=== PATIENT | female | born 1945 | race Caucasian/White ===

== ENCOUNTER 2018-03-23 19:31 | Inpatient (IN) ==
[2018-03-23] MEDS ORDERED: Piperacil/Tazo 3.375 GM Premix 3.375 GM/50 ML PIGGYBACK IV.SIG ONE (20:04)
[2018-03-23] MEDS ORDERED: Morphine Inj 4 MG/ML Vial IV.PUSH ONE ×2 (20:04→21:54)
[2018-03-23] MEDS ORDERED: Vancomycin Inj 1,000 MG in Sodium Chlor 0.9% Inj 250 ML IV.SIG ONE (20:04)
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
[2018-03-23 20:26] LABS: Baso % (Auto) 0.6 % (0.0-2.0); Eos # (Auto) 0.2 th/mm3 (0.0-0.4); Eos % (Auto) 2.8 % (0.0-4.0); Hematocrit 35.7 % (35.0-46.0); Hemoglobin 11.9 gm/dL (11.6-15.3); Lymph # (Auto) 2.1 th/mm3 (1.0-4.8); Lymph % (Auto) 24.7 % (9.0-44.0); Mean Corpuscular HGB Conc 33.5 % (32.0-36.0); Mean Corpuscular Hemoglobin 30.5 pg (27.0-34.0); Mean Corpuscular Volume 91.1 fL (80.0-100.0); Mean Platelet Volume 7.5 fL (7.0-11.0); Mono # (Auto) 1.1 th/mm3 (0.0-0.9); Mono % (Auto) 12.6 % (0.0-8.0); Neut % (Auto) 59.3 % (16.0-70.0); Platelet Count 306 th/mm3 (150-450); Red Blood Count 3.91 mil/mm3 (4.00-5.30); White Blood Count 8.4 th/mm3 (4.0-11.0)
--- NOTE | 2018-03-23 20:36 | XR ---
EXAM DATE: 03/23/2018 8:30 PM EST AGE/SEX: 72 years / Female INDICATIONS: Left distal tibia infection and pain. CLINICAL DATA: This is the patient's initial encounter. Patient reports that signs and symptoms have been present for 2 months and indicates a pain score of 10/10. MEDICAL/SURGICAL HISTORY: None. None. COMPARISON: No prior exams available for comparison. FINDINGS: Bony structures are intact and in normal alignment. Osseous density is normal. Mild soft tissue swell ing overlying the distal anterior calf. No radiopaque foreign bodies seen. CONCLUSION: 1. Soft tissue swelling overlying the distal anterior tibia without underlying bony abnormality or o paque foreign bodies. Electronically signed by: Gavin Zeng MD Board Certified Radiologist 03/23/2018 8:34 PM [facility] T
[2018-03-23 20:38] LABS: INR 1.1 Ratio; Prothrombin Time 10.9 sec (9.8-11.6)
[2018-03-23 20:42] LABS: Albumin 3.3 g/dL (3.4-5.0); Anion Gap 7 meq/L (5-15); Aspartate Aminotransferase 24 U/L (15-37); Blood Urea Nitrogen 28 mg/dL (7-18); Calcium 9.8 mg/dL (8.5-10.1); Carbon Dioxide 29.3 meq/L (21.0-32.0); Chloride 107 meq/L (98-107); Glomerular Filtration Rate 55 mL/min (>89); Glucose,Random 116 mg/dL (74-106); Magnesium 2.3 mg/dL (1.5-2.5); Potassium 4.6 meq/L (3.5-5.1); Sodium 143 meq/L (136-145)
[2018-03-23 20:43] LABS: Alanine Aminotransferase 18 U/L (10-53)
[2018-03-23 20:45] LABS: Alkaline Phosphatase 63 U/L (45-117); Total Protein 8.7 g/dL (6.4-8.2)
[2018-03-23] MEDS ORDERED: Vancomycin Consult Pharmacy OTHER PRN (23:22)
[2018-03-23] MEDS ORDERED: Bisacodyl 10 MG Supp RECTAL PRN (23:23)
[2018-03-23] MEDS ORDERED: Acetaminophen 325 MG Tablet PO PRN (23:23)
[2018-03-23] MEDS: Sod Chloride 0.9% Inj 1,000 ML IV.CONT SCH (23:32)
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
[2018-03-24] MEDS ORDERED: Morphine Inj 4 MG/ML Vial IV.PUSH ONE (01:40)
[2018-03-24] MEDS: Piperacil/Tazo 4.5 GM Premix 4.5 GM/100 ML BAG IV.SIG SCH ×4 (01:57→21:33)
[2018-03-24 04:55] LABS: Baso % (Auto) 0.3 % (0.0-2.0); Eos # (Auto) 0.3 th/mm3 (0.0-0.4); Eos % (Auto) 3.3 % (0.0-4.0); Hematocrit 32.4 % (35.0-46.0); Lymph # (Auto) 1.6 th/mm3 (1.0-4.8); Lymph % (Auto) 20.2 % (9.0-44.0); Mean Corpuscular HGB Conc 33.8 % (32.0-36.0); Mean Corpuscular Hemoglobin 30.4 pg (27.0-34.0); Mean Platelet Volume 7.3 fL (7.0-11.0); Mono # (Auto) 1.1 th/mm3 (0.0-0.9); Mono % (Auto) 13.9 % (0.0-8.0); Neut # (Auto) 4.9 th/mm3 (1.8-7.7); Neut % (Auto) 62.3 % (16.0-70.0); Platelet Count 268 th/mm3 (150-450); Red Cell Distribution Width 14.8 % (11.6-17.2); White Blood Count 7.9 th/mm3 (4.0-11.0)
[2018-03-24 05:27] LABS: Alanine Aminotransferase 12 U/L (10-53); Albumin 2.8 g/dL (3.4-5.0); Alkaline Phosphatase 50 U/L (45-117); Anion Gap 8 meq/L (5-15); Aspartate Aminotransferase 19 U/L (15-37); Blood Urea Nitrogen 18 mg/dL (7-18); Calcium 8.7 mg/dL (8.5-10.1); Chloride 109 meq/L (98-107); Glomerular Filtration Rate 67 mL/min (>89); Glucose,Random 109 mg/dL (74-106); Potassium 3.4 meq/L (3.5-5.1); Sodium 144 meq/L (136-145); Total Protein 7.4 g/dL (6.4-8.2)
--- NOTE | 2018-03-24 07:17 | ECG ---
Date Performed: 03/23/2018 Time Performed: 20:30:39 PTAGE: 72 years EKG: Sinus rhythm MINIMAL ST DEPRESSION BORDERLINE ECG NO PREVIOUS TRACING DOCTOR: Eloy Maradiaga Interpretating Date/Time 03/24/2018 07:15:27
[2018-03-24] MEDS: Vitamin B Complex/Vitamin C Tablet PO SCH (08:50)
[2018-03-24] MEDS: Divalproex 500 MG ER Tablet PO SCH ×2 (08:51→21:35)
[2018-03-24] MEDS: Lisinopril 20 MG Tablet PO SCH ×2 (08:51→21:36)
[2018-03-24] MEDS: hydroCHLOROthiazide 25 MG Tablet PO SCH ×2 (08:51→21:36)
[2018-03-24] MEDS: Sertraline 50 MG Tablet PO SCH (08:52)
[2018-03-24] MEDS: Lactobacillus Acidophilus/L. Spores Tablet PO SCH ×2 (08:52→21:36)
[2018-03-24] MEDS: Ascorbic Acid 500 MG Tablet PO SCH (08:56)
[2018-03-24] MEDS ORDERED: Non-Formulary Drug (Lisinopril-Hydrochlorothiazide [Lisinopril-Hydrochlorothiazide] 1 TAB) PO SCH (09:00)
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
[2018-03-24] MEDS: Collagenase Oint 30 GM Tube TOPICAL SCH (10:54)
--- NOTE | 2018-03-24 12:40 | P.CONVS ---
History of Present Illness Service: vascular surgery Consult date: 03/24/18 Primary Care Provider: UNKNOWN Chief Complaint: non healing left leg wound History of Present Illness: 72 year old female since with left lower extremity nonhealing wound. She has been treated for the past 2 weeks with antibiotics as an outpatient. She presents today to the ER with a chief complaint of worsening pain and purulent drainage from her wound. She denies any fever or chills. PMFSH - History History Provided By: Patient - Medical History Medical History: Medical History (Last Reviewed 03/24/18 @ 11:31 by Michael Bailey MD) HTN (hypertension) Hx of hysterectomy - Tobacco History Second Hand Smoke Exposure: Yes Tobacco Use In Past 30 Days: Yes Smoking Status: Current some day smoker Tobacco Type: Cigarettes - Alcohol History How Often Do You Have a Drink Containing Alcohol: 2 to 3 times a week - Substance Use History Substance History: No History of Abuse - Travel History Recent Travel in the [place] Within the Last 8 Weeks: No Recent Travel Out of the Country Within the Last 8 Weeks: No - Immunization History Tetanus Immunization: >5 Years Hx Influenza Vaccine This Season: No Medications and Allergies Active Medications: Active Medications Acetaminophen (Tylenol) 650 mg PO Q4H PRN PRN Reason: Temp > 100.4 Al Hydroxide/Mg Hydroxide (Milk Of Celio Keenan) 30 ml PO Q12H PRN PRN Reason: Mild Constipation Ascorbic Acid (Vitamin C) 500 mg PO DAILY [facility] Last Admin: 03/24/18 08:56 Dose: 500 mg Aspirin (Ecotrin) 81 mg PO DAILY [facility] Last Admin: 03/24/18 11:57 Dose: 81 mg Bisacodyl (Dulcolax Supp) 10 mg RECTAL DAILY PRN PRN Reason: SEVERE CONSITIPATION Collagenase (Santyl Oint) 1 applicatio TOPICAL DAILY [facility] Last Admin: 03/24/18 10:54 Dose: 1 applicatio Divalproex Sodium (Depakote Er) 500 mg PO BID [facility] Last Admin: 03/24/18 08:51 Dose: 500 mg Heparin Sodium (Porcine) (Heparin Inj) 5,000 units SQ Q8HR [facility] Hydrochlorothiazide (Hydrodiuril) 12.5 mg PO BID [facility] Last Admin: 03/24/18 08:51 Dose: 12.5 mg Piperacillin/Tazobactam/Dextrose (Zosyn 4.5 Gm Premix) 4.5 gm in 100 mls @ 200 mls/hr IV.SIG Q6H [facility] Last Infusion: 03/24/18 09:55 Dose: Infused Sodium Chloride (Ns Inj) 1,000 mls @ 50 mls/hr IV.CONT .Q20H [facility] Last Admin: 03/23/18 23:32 Dose: 50 mls/hr Vancomycin HCl 750 mg/ Sodium (Chloride) 257.5 mls @ 250 mls/hr IV.SIG Q24H [facility] Lactobacillus Acidophilus (Lactinex) 1 tab PO BID [facility] Last Admin: 03/24/18 08:52 Dose: 1 tab Lactulose (Lactulose Liq) 30 ml PO DAILY PRN PRN Reason: SEVERE CONSITIPATION Lisinopril (Prinivil) 20 mg PO BID [facility] Last Admin: 03/24/18 08:51 Dose: 20 mg Miscellaneous Information ([facility] Ordered Lab Info) 0 each OTHER ONCE ONE Stop: 03/27/18 20:46 Ondansetron HCl (Zofran Inj) 4 mg IV.PUSH Q6H PRN PRN Reason: NAUSEA OR VOMITING Oxycodone/Acetaminophen (Percocet 5/325 Mg) 1 tab PO Q6H PRN PRN Reason: BREAKTHROUGH PAIN Last Admin: 03/24/18 10:07 Dose: 1 tab Pharmacy Profile Note (Vancomycin Consult Pharmacy) 1 each OTHER UNSCH PRN PRN Reason: Pharmacy to dose Sennosides (Senokot) 17.2 mg PO Q12H PRN PRN Reason: Moderate Constipation Sertraline HCl (Zoloft) 50 mg PO DAILY [facility] Last Admin: 03/24/18 08:52 Dose: 50 mg Sodium Chloride (Ns Flush) 2 ml IV.FLUSH PRN PRN PRN Reason: FLUSH AFTER USING IV ACCESS Sodium Chloride (Ns Flush) 2 ml IV.FLUSH BID [facility] Last Admin: 03/24/18 08:53 Dose: 2 ml Terazosin HCl (Hytrin) 1 mg PO [facility] Vitamin B Complex/Vitamin C (Allbee C) 1 tab PO DAILY [facility] Last Admin: 03/24/18 08:50 Dose: 1 tab Allergies Allergy/AdvReac Type Severity Reaction Status Date / Time No Known Allergies Allergy Verified 03/23/18 19:39 Home Medications Medication Instructions Recorded Confirmed Type ascorbic acid (vitamin C) [Vitamin 500 mg PO DAILY 03/23/18 03/24/18 History C] tzcwbeg-[id number]-[id number] 1 tab PO DAILY 03/23/18 03/24/18 History divalproex 500 mg PO BID 03/23/18 03/24/18 History lisinopril-hydrochlorothiazide 1 tab PO BID 03/23/18 03/24/18 History sertraline 50 mg PO DAILY 03/23/18 03/24/18 History terazosin 1 mg PO HS 03/23/18 03/24/18 History vitamin B complex [B Complex 1] 1 tab PO DAILY 03/23/18 03/24/18 History Physical Exam Vital Signs / I&O: Vital Signs 03/23/18 19:36 03/23/18 19:49 03/23/18 20:53 Temperature 98.8 F Pulse Rate 80 76 Respiratory Rate 16 18 16 Blood Pressure 169/79 H 168/70 H Pulse Oximetry 99 100 03/23/18 22:11 03/24/18 03:32 03/24/18 04:00 Temperature 98.3 F 98.3 F Pulse Rate 79 86 Respiratory Rate 16 16 12 Blood Pressure 171/72 H 192/81 H Pulse Oximetry 100 98 03/24/18 04:23 03/24/18 07:32 03/24/18 09:00 Temperature 98 F Pulse Rate 79 Respiratory Rate 18 18 Blood Pressure 164/78 H 152/67 H Pulse Oximetry 98 03/24/18 11:08 Temperature 98 F Pulse Rate 77 Respiratory Rate 18 Blood Pressure 176/72 H Pulse Oximetry 95 Intake & Output 03/23/18 03/24/18 03/24/18 18:59 06:59 18:59 Intake Total 400 / 400 100 / 100 Balance 400 / 400 100 / 100 Weight 49.89 kg Intake: IV 400 / 400 100 / 100 Zosyn 3.375 GM Premix 3.375 gm 50 / 50 In 50 ml @ 100 mls/hr IV.SIG ONCE ONE Rx#:[id number] Zosyn 4.5 GM Premix 4.5 gm In 100 / 100 100 / 100 100 ml @ 200 mls/hr IV.SIG Q6H [facility] Rx#:[id number] Vancomycin Inj 1,000 MG In NS 250 / 250 Inj 250 ML @ 250 mls/hr IV.SIG ONCE ONE Rx#:[id number] Oral 0 / 0 Other: # Voids 2 Date of Last Bowel Movement 03/23/18 03/23/18 Weight On Admission 49.895 kg Neuro: Alert awake oriented HEENT: Normocephalic atraumatic Neck: Supple Heart: S1-S2 Lungs: Clear to auscultation bilateral Abdomen: Soft nontender nondistended Vascular: Palpable femoral pulses bilateral Monophasic pedal signals bilateral Left calf wound with good granulation tissue. There is surrounding erythema and mild purulent discharge. Laboratory Results - last 24 hr 03/23/18 03/23/18 03/23/18 20:10 20:10 20:10 WBC 8.4 RBC 3.91 L Hgb 11.9 Hct 35.7 MCV 91.1 MCH 30.5 MCHC 33.5 RDW 15.0 Plt Count 306 MPV 7.5 Neut % (Auto) 59.3 Lymph % (Auto) 24.7 Hill % (Auto) 12.6 H Eos % (Auto) 2.8 Baso % (Auto) 0.6 Neut # (Auto) 5.0 Lymph # (Auto) 2.1 Hill # (Auto) 1.1 H Eos # (Auto) 0.2 Baso # (Auto) 0.0 WBC Differential . Differential Comment Auto diff final PT 10.9 INR 1.1 APTT 32.0 H Sodium 143 Potassium 4.6 Chloride 107 Carbon Dioxide 29.3 Anion Gap 7 BUN 28 H Creatinine 0.98 Estimated GFR 55 L Random Glucose 116 H Lactic Acid Calcium 9.8 Magnesium 2.3 Total Bilirubin 0.2 AST 24 ALT 18 Alkaline Phosphatase 63 Total Protein 8.7 H Albumin 3.3 L 03/23/18 03/23/18 03/24/18 20:10 23:15 04:26 WBC 7.9 RBC 3.60 L Hgb 11.0 L Hct 32.4 L MCV 90.0 MCH 30.4 MCHC 33.8 RDW 14.8 Plt Count 268 MPV 7.3 Neut % (Auto) 62.3 Lymph % (Auto) 20.2 Hill % (Auto) 13.9 H Eos % (Auto) 3.3 Baso % (Auto) 0.3 Neut # (Auto) 4.9 Lymph # (Auto) 1.6 Hill # (Auto) 1.1 H Eos # (Auto) 0.3 Baso # (Auto) 0.0 WBC Differential . Differential Comment Auto diff final PT INR APTT Sodium Potassium Chloride Carbon Dioxide Anion Gap BUN Creatinine Estimated GFR Random Glucose Lactic Acid 2.3 H 0.9 Calcium Magnesium Total Bilirubin AST ALT Alkaline Phosphatase Total Protein Albumin 03/24/18 04:26 WBC RBC Hgb Hct MCV MCH MCHC RDW Plt Count MPV Neut % (Auto) Lymph % (Auto) Hill % (Auto) Eos % (Auto) Baso % (Auto) Neut # (Auto) Lymph # (Auto) Hill # (Auto) Eos # (Auto) Baso # (Auto) WBC Differential Differential Comment PT INR APTT Sodium 144 Potassium 3.4 L D Chloride 109 H Carbon Dioxide 27.0 Anion Gap 8 BUN 18 Creatinine 0.83 Estimated GFR 67 L Random Glucose 109 H Lactic Acid Calcium 8.7 D Magnesium Total Bilirubin 0.4 AST 19 ALT 12 Alkaline Phosphatase 50 Total Protein 7.4 D Albumin 2.8 L Microbiology 03/23/18 20:10 Aerobic Blood Culture - Preliminary Blood - Peripheral No growth in 1 day Anaerobic Blood Culture - Preliminary No growth in 1 day 03/23/18 20:05 Aerobic Blood Culture - Preliminary Blood - Peripheral No growth in 1 day Anaerobic Blood Culture - Preliminary No growth in 1 day 03/23/18 20:26 Gram Stain - Final Abscess - Leg Impressions Tibia/Fibula X-Ray 03/23/18 20:00 CONCLUSION: 1. Soft tissue swelling overlying the distal anterior tibia without underlying bony abnormality or opaque foreign bodies. Aorta w/Runoff CTA 03/23/18 20:04 CONCLUSION: 1. Plaque throughout the arterial system. 2. Moderate plaque at the proximal right internal and external iliac arteries. 3. Plaque narrowing the lumen by 50% at the right common femoral artery. 4. 2 focal areas of narrowing at the mid and distal left superficial femoral artery narrowing the lumen by 50%. Assessment and Plan - Assessment (1) Critical ischemia of lower extremity Code(s): I99.8 - Other disorder of circulatory system Status: Acute - Plan Critical limb ischemia with tissue loss 1. Outlying facility ABIs: 0.6 bilaterally 2. Plan left lower extremity angiogram today 3. Wound care per podiatry team. Thank you for allowing me to participate in this patient care. If you have any questions do not hesitate to call my cell phone Eder Damico MD [facility] [phone]
[2018-03-24] MEDS: Heparin - SQ 10,000 UNITS/ML Vial SQ SCH ×2 (13:41→21:37)
--- NOTE | 2018-03-24 15:07 | MB ---
cc: Conner Garrido MD DATE: 03/24/2018 DATE OF CONSULTATION: 03/24/2018 REQUESTING PHYSICIAN: Dr. Oneil REASON FOR CONSULTATION: Left lower extremity cellulitis. HISTORY OF PRESENT ILLNESS: This is a 72-year-old white female who has had chronic skin wound on her left inner tibia for about 5 years. She had an injury to the leg 5 years ago. She noticed that 3 weeks ago the area became more reddened and has been looking progressively worse since that time. She was evaluated by Podiatry outpatient. She was put on antibiotic in the form of clindamycin and ciprofloxacin on 03/16/2018. She tells me that she began to have diarrhea the day after she started taking the antibiotics. She was reported to have peripheral vascular disease noted with ultrasound and MRI showed no evidence of osteomyelitis or abscess. She was sent to the emergency department for evaluation and a culture of the wound was taken and blood culture was also taken. She continues to have bouts of diarrhea. The wound culture is pending. The patient is afebrile and white blood cell count is normal. This consultation is requested for infection evaluation and management. PAST MEDICAL HISTORY: Hypertension. PAST SURGICAL HISTORY: Hysterectomy. ALLERGIES: NO KNOWN DRUG ALLERGIES. MEDICATIONS: 1. Vancomycin. 2. Piperacillin-tazobactam. 3. Zoloft. 4. Percocet 5 p.r.n. 5. Depakote. 6. Ecotrin. 7. Vitamin C. SOCIAL HISTORY: The patient smokes a pack of cigarettes a day. Denies illicit drugs. Consumes alcohol 2-3 times a week. FAMILY HISTORY: Noncontributory. REVIEW OF SYSTEMS: All systems have been reviewed and negative except for pain in the left leg. PHYSICAL EXAMINATION: GENERAL: She is a frail, thin female, who is awake and alert and in no acute distress. VITAL SIGNS: Temperature 98 degrees, BP 176/72, respirations 18, heart rate 77. HEENT: Head atraumatic. Extraocular movements grossly intact. Pupils reactive to light. No icterus. No conjunctival erythema. Oropharynx, no thrush. No visible lesions. NECK: Supple without adenopathy. LUNGS: Decreased breath sounds throughout. HEART: Distant S1 and S2, without audible murmur. ABDOMEN: Bowel sounds present. Soft, no tenderness. RECTAL: Not performed. EXTREMITIES: The left mid to distal inner tibia has an ulcerated wound, which has exudate. The area of the ulcer is white and has mild surrounding erythema. The rest of the extremities have no clubbing, cyanosis or edema. SKIN: No diffuse rash. NEUROLOGIC: No gross focal finding. PSYCHIATRIC: Calm and cooperative. LABORATORY DATA: WBC 7.9, platelet count 268, hemoglobin 11.0 with 62% neutrophils. Creatinine 0.83. Estimated GFR 67. Sodium 144. IMPRESSION: 1. Left leg nonhealing infected wound. Probably difficulty healing the wound because of peripheral vascular disease. Wound culture is pending. 2. Diarrhea. The patient received p.o. antibiotics and likely may have Clostridium difficile. RECOMMENDATIONS: 1. Continue the piperacillin/tazobactam. 2. Continue vancomycin. 3. Send stool for Clostridium difficile. 4. Add p.o. Flagyl while awaiting stool C. difficile. 5. Monitor wound culture. 6. Monitor clinical response. Thank you for this consultation. The patient's progress will be followed and further recommendations will be given upon followup if necessary. MD JACKIE Desai/arelis , 02:34 PM , 02:44 PM PRATIBHA
[2018-03-24] MEDS: metroNIDAZOLE 500 MG Tablet PO SCH ×2 (15:30→22:50)
[2018-03-24] MEDS ORDERED: Heparin/NS PF Inj 1,000 ML ONE (15:44)
[2018-03-24] MEDS ORDERED: fentaNYL Citrate Inj 100 MCG/2 ML Ampul ONE (15:46)
[2018-03-24] MEDS ORDERED: Iohexol 350 MG/ML 100 ML Vial (for Cath Lab) IVCONTRAST ONE (16:00)
--- NOTE | 2018-03-24 17:06 | P.OP ---
Preoperative Diagnosis: Left lower extremity CLI with tissue loss Postoperative Diagnosis: Left lower extremity CLI with tissue loss Date of procedure: 03/24/18 Procedure: 1. Ultrasound-guided access of the right common femoral artery 2. AIF angiogram 3. Left lower extremity third order angiogram 4. Atherectomy of the left superficial femoral 5. Balloon angioplasty of the left superficial femoral artery 6. Perclose of the right common femoral artery 7. Radiological supervision interpretation 8. Conscious sedation Anesthesia: other (Local moderate sedation) Surgeon: Eder Damico MD Estimated blood loss (mL): 5 Operation and Findings: Findings 1. The infrarenal abdominal aorta, bilateral common iliac artery, bilateral external iliac artery, left common femoral artery, left profunda femoral artery with noted to be patent with no evidence of significant stenosis. 2. Multiple area of critical stenosis involving the left superficial femoral artery. This was treated using an atherectomy followed by balloon angioplasty via a 5 x 150 mm balloon. Completion angiogram shows no residual stenosis or flow-limiting dissection. 3. Three-vessel runoff to the left foot. Operation details The patient was taken to the operating room, laid supine on the OR table. After adequate sedation the patient was prepped and draped in the standard sterile fashion. Timeout was called with all members in the OR in agreement. 1 % lidocaine was injected in the right groin. Using ultrasound guidance, we accessed the right common femoral artery and a 5 Uzbek sheath was placed. The catheter was placed in the infrarenal abdominal aorta and an AIF angiogram was performed. A catheter was placed into the left popliteal artery and left lower extremity third order angiogram was performed. Patient was heparinized. The 6 Uzbek destination sheath was placed with the tip in the left common femoral artery. Atherectomy of the left superficial femoral artery was performed followed by balloon angioplasty. Completion angiogram was performed. At this point all wire catheter and sheath were removed hemostasis achieved by applying a Perclose device the right common femoral artery. Patient tolerated the procedure well and was taken to recovery unit in stable condition.
--- NOTE | 2018-03-24 18:00 | CATHPROC ---
[employer] HIS Report Study Information Study Number Admission Scheduled Start Study Start [id number] Mar 23 2018 11:12PM 03/24/2018 Mar 24 2018 3:44PM [place] Service Cath Endovascular Study Admit Source Facility Department Emergency department [facility] Physician and Clinical Staff Initial Eder Zaragoza Surgery Nurse Hansa Barajas,OLIVIA Surgery Nurse Rg Landry,RN Recorder Maksim Del Valle,RT(R) Scrub Shahzad Hobson,RT(R) Procedures Performed Procedure Location (Site) Vessel Name Angiogram (manual) Fem L. Com (L7) Femoral Art Angiogram (manual) PELVIS Angiogram (manual) SFA (left) Femoral Art Angiogram (manual) Tib, Ant. (left) Popliteal Angiogram (manual) Tib, Post (Left) Popliteal RIM FIRE PRIMING TOOL SETTER SFA (left) Femoral Art Wire insertion Fem Art (right) Femoral Art Equipment Time Retort Fireman Description Size Mfg Part Number Used/Scraped PERCLOSE, PRO GLIDE CLOSER 16:34 [employer] FR 6 [id number] *[id number] Used DEVICE [id number] 15:45 [employer] WIRE, SUPERCORE 190CM Used *[id number] 16:12 [employer] WIRE, SUPERCORE 300CM 300CM Used *[id number] 16:26 [employer] WIRE, SUPERCORE 300CM 300CM Used *[id number] 15:45 ANGIO-DYNAMICS OMNI FLUSH 65CM CATHETER FR 4 Used *[id number] DBP- CARDIOVASCULAR CATHETER, STEALTH SOLID 16:16 [id number] Used SYSTEMS INC. 2.0MM *[id number] CARDIOVASCULAR [id number] 16:13 WIRE, FIRM (VIPER) 335 Used SYSTEMS INC. *[id number] INTRODUCER SET, 15:45 [employer]. FR 5 [id number] *[id number] Used MICROPUNCTURE STIFF BALLOON, EVERCROSS 5 X 150 [id number] 16:23 [employer] 5 X 150 Used 135CM *[id number] CATHETER, FR5 TRAILBLAZER [id number] 16:12 [employer] 135CM Used .035 *[id number] 15:45 [employer] INDUSTRIES PACK, CCL CUSTOM * Used *[id number] PROBE COVER, STERILE [id number] 15:45 Improve Digital * Used ULTRASOUND W/ GEL *[id number] 15:45 NAMIC MANIFOLD, 4 PORT * Used *[id number] 15:45 NYCOMED OMNIPAQUE, 300 MG, 150ML 150ML [id number] Used 15:45 NYCOMED OMNIPAQUE, 300 MG, 50ML 50ML [id number] Used [id number] 15:45 TERUMO MEDICAL SHEATH, FR5 TERUMO (10CM) FR 5 Used *[id number] SHEATH, FR6 PINNACLE [id number] 16:11 TERUMO MEDICAL/ANATOLIY FR 6 Used DESTINATION 45CM *[id number] WIRE, ANGLED GLIDE .035 [id number] 15:45 TERUMO MEDICAL/ANATOLIY 260CM Used 260CM *[id number] Equipment Model, Serial, Lot Number and Expiration Data Description Model Number Serial Number Lot Number Expiration Date BALLOON, EVERCROSS 5 X 150 [id number] 02-24-2021 135CM CATHETER, FR5 TRAILBLAZER .035 [id number] 10-17-2020 CATHETER, STEALTH SOLID 2.0MM [id number] 11-09-2019 PERCLOSE, PRO GLIDE CLOSER [id number] 12-10-2019 DEVICE WIRE, FIRM (VIPER) 335 [id number] 01-09-2020 History: Allergies Allergy Reaction No Known Allergies History: Risk Factors Family History of Hypertension Dyslipidemia Previous PR Previous Heart Failure Premature CAD Yes No No No No Prior Valve Prior PCI Prior CABG Surgery No No No Cerebrovascular Peripheral Artery Chronic Lung On Dialysis Diabetes Disease Disease Disease No Yes Yes No No History: Stress Tests Stress or Imaging Studies Performed No History: Other Current Smoker Method Packs a Day Years Used Pack Years Yes Cigarettes 1 65 65 Labs Hgb (g/dl) Hct (%) WBC (l/cumm) Platelets (thousands) 11.60-17.00 35.00-51.00 4.00-11.00 150.00-450.00 11.0 32.4 7.9 268 Glucose (mg/dl) BUN (mg/dl) Creatinine (mg/dl) BUN:Creatinine (1:x) 74.00-106.00 7.00-18.00 0.50-1.30 10.00-20.00 109 18 0.8 22.5 Na (meq/l) K (meq/l) 136.00-145.00 3.50-5.10 144 3.4 INR (PTT:PT) 0.90-1.10 1.1 CPK-MB (ng/ML) 0.50-3.60 Not Drawn Medication Medication Total Dose (Bolus/Oral) Medication Total Dosage/Unit 1% XYLOCAINE 20 mL FENTANYL 100 mcg HEPARIN 3000 units NTG (IC) 600 mcg VERSED 2 mg Medications (Bolus/Oral) Medication Time Given Dosage/Unit Administered By Reason VERSED 03/24/2018 4:00:59 PM 2 mg Hansa Barajas 2 mg VERSED given in lab by Hansa Barajas RN in Right Antecubital via Peripheral IV. FENTANYL 03/24/2018 4:01:14 PM 50 mcg Hansa Barajas 50 mcg FENTANYL given in lab by Hansa Barajas RN in Right Antecubital via Peripheral IV. 1% XYLOCAINE 03/24/2018 4:01:46 PM 20 mL Eder Damico 20 mL 1% XYLOCAINE given in lab by Eder Damico in Right Groin via Subcutaneous. HEPARIN 03/24/2018 4:11:30 PM 3000 units Hansa Barajas 3000 units HEPARIN given in lab by Hansa Barajas RN in Right Antecubital via Peripheral IV. NTG (IC) 03/24/2018 4:20:14 PM 400 mcg Shahzad Hobson 400 mcg NTG (IC) given in lab by Shahzad Hobson RT(R) via Intra-arterial. NTG (IC) 03/24/2018 4:22:44 PM 200 mcg Shahzad Hobson 200 mcg NTG (IC) given in lab by Shahzad Hobson RT(R) via Intra-arterial. FENTANYL 03/24/2018 4:32:53 PM 50 mcg Hansa Barajas 50 mcg FENTANYL given in lab by Hansa Barajas RN in Right Antecubital via Peripheral IV. Medication (Drip) Medication Time Given Dosage/Unit Concentration/Unit Diluent (ml) Solution IV Solutions 03/24/2018 3:47:18 PM 0 mL (IV) 500 NaCl .9 Patient arrived on IV Solutions in Right Arm via Peripheral IV. Pump/Drip Flow = 20 ml/hr using NaCl .9. Initial Case Assessment Cardiovascular HR Rhythm NIBP Chest Pain 75 sr 171/63 0 Edema Present Skin color Skin None Normal Warm Dry Circulatory - Right Pulses Dorsalis Pedis Femoral 1 1 Scale (0,1,2,3,4,d) Circulatory - Left Pulses Dorsalis Pedis Femoral 1 1 Scale (0,1,2,3,4,d) Neurological State Oriented to time-place- Alert Moves all extremities person Respiration - General Respiration Rate SpO2 (%) O2 (lpm) (B/min) 11 96 0 Chronological Log Time Study Chronological Log 15:40:56 Patient arrived via Bed. 15:40:58 Patient Name, D.O.B, / Armband Verified By R.N. 15:44:19 Consent signed by the physician and the patient and verified by the [facility] staff. 15:44:21 Pre-op and post- op instructions given; patient acknowledges understanding of instructions. 15:44:22 Verbal Stimulation=2 Physical Stimulation=2 Airway=2 Respiration=2 TOTAL=8. (0=absent, 1=li mited, 2=present) Vitals capture started with the following parameters, Patient=Adult, Interval=5 min, Initial Pr jpvkmh=663 mmHg, 15:45:10 Deflation Rate=5 mmHg, Cuff placed on Right Arm 15:46:03 HR=78 bpm, VODP=949/63 mmhg, SpO2=96.0 %, Resp=19 B/min, Pain=0, Justo=10, Schaefer=2 15:47:06 Presedation assessment performed by [facility] RN. 15:47:09 Patient has been NPO for More than 6Hrs. 15:47:10 Skin Breakdown-Left lower extremity wound. 15:47:17 Rafat Prominences Protected 15:47:17 A # 20 IV was noted in the Upper Arm (right). Grade = 0 15:47:18 Patient arrived on IV Solutions in Right Arm via Peripheral IV. Pump/Drip Flow = 20 ml/hr u sing NaCl .9. 15:47:22 History and physical on the chart or being dictated. Assessment: Initial Case, HR=75 BPM, Rhythm=sr, ZIBE=588/63 mmhg, Chest Pain=0, Edema=None, Col or=Normal, Skin = Warm, Dry Right Pulses: Teo Ped=1, Femoral=1 15:47:22 Left Pulses: Teo Ped=1, Femoral=1 Neurological: State=Alert, Ox3, GARCIA Respiration: Resp=11 B/min, SpO2=96 %, O2=0 lpm 15:50:37 Bilateral groins prepped with 2% chlorhexidine, and draped after a 3 minute waiting time. 15:50:52 HR=62 bpm, UIMU=207/71 mmhg, SpO2=98.0 %, Resp=12 B/min, Pain=0, Justo=10, Schaefer=2 15:55:55 HR=90 bpm, ITVS=212/67 mmhg, SpO2=97.0 %, Resp=14 B/min, Pain=0, Justo=10, Schaefer=2 15:57:29 Pressure channel 2 zeroed. 15:57:48 MD arrived. Time Out. Correct patient, correct procedure, correct physician, labs, allergies, and equipment verified with electrical laboratory technician 16:00:16 team present. Fire risk assesment completed (see hard stop sheet for coding). Time Out Conc urred by MD and individual staff in procedure. 16:00:50 HR=97 bpm, ZYYU=101/66 mmhg, SpO2=97.0 %, Resp=14 B/min, Pain=0, Justo=10, Schaefer=2 16:00:57 Case Start 16:00:59 2 mg VERSED given in lab by Hansa Barajas RN in Right Antecubital via Peripheral IV. 16:01:14 50 mcg FENTANYL given in lab by Hansa Barajas RN in Right Antecubital via Peripheral IV. 16:01:46 20 mL 1% XYLOCAINE given in lab by Eder Damico in Right Groin via Subcutaneous. 16:03:52 Access site was Right Femoral Artery. 16:03:59 A SHEATH, FR5 TERUMO (10CM) FR 5 was advanced into the Fem Art (right) using the Percutaneo us technique. A OMNI FLUSH 65CM CATHETER FR 4 was advanced over a wire. OMNIPAQUE, 300 MG, 150ML 150ML was us ed for 16:05:51 injections. 16:05:55 HR=84 bpm, YVAM=304/53 mmhg, SpO2=88.0 %, Resp=7 B/min, Pain=0, Justo=10, Schaefer=2 16:07:14 PELVIS angiogram, manually injected. 16:07:35 A WIRE, ANGLED GLIDE .035 260CM 260CM was inserted via Fem Art (right). 16:08:15 Reference ECG taken 16:08:51 Fem L. Com (L7) angiogram, manually injected. 16:09:02 SFA (left) angiogram, manually injected. 16:09:09 Tib, Ant. (left) angiogram, manually injected. 16:09:24 Tib, Post (Left) angiogram, manually injected. 16:10:46 HR=94 bpm, EIEN=024/57 mmhg, SpO2=88.0 %, Resp=7 B/min, Pain=0, Justo=10, Schaefer=2 16:11:22 A WIRE, SUPERCORE 300CM 300CM was inserted via Fem Art (right). 16:11:30 3000 units HEPARIN given in lab by Hansa Barajas, OLIVIA in Right Antecubital via Peripheral IV. A SHEATH, FR6 PINNACLE DESTINATION 45CM FR 6 was exchanged in the Fem Art (right). This was nec essary in 16:11:33 order to accomodate a larger catheter. 16:15:47 HR=70 bpm, XBOD=900/53 mmhg, SpO2=90.0 %, Resp=8 B/min, Pain=0, Justo=10, Schaefer=2 16:16:21 A WIRE, FIRM (VIPER) 335 was inserted via Fem Art (right). 16:16:25 An CATHETER, STEALTH SOLID 2.0MM catheter was inserted into the SFA (left). Athrectomy in progress. 16:16:47 16:20:14 400 mcg NTG (IC) given in lab by Shahzad Hobson, RT(R) via Intra-arterial. 16:21:09 Catheter was removed 16:21:31 HR=72 bpm, HERW=158/63 mmhg, SpO2=91.0 %, Resp=9 B/min, Pain=0, Justo=10, Schaefer=2 16:22:14 An CATHETER, STEALTH SOLID 2.0MM catheter was inserted into the SFA (left). 16:22:33 athrectomy in progress. 16:22:44 200 mcg NTG (IC) given in lab by Shahzad Hobson, RT(R) via Intra-arterial. 16:23:03 Catheter was removed 16:23:44 A BALLOON, EVERCROSS 5 X 150 135CM 5 X 150 was inserted over WIRE, FIRM (VIPER) 335 via the SFA (left). 16:25:53 HR=81 bpm, DXRE=269/63 mmhg, SpO2=90.0 %, Resp=11 B/min, Pain=0, Justo=10, Schaefer=2 16:26:17 In the SFA (left) a BALLOON, EVERCROSS 5 X 150 135CM 5 X 150 was inflated to 8 atms for 15 seconds. 16:27:01 SFA (left) angiogram, manually injected. 16:27:44 In the SFA (left) a BALLOON, EVERCROSS 5 X 150 135CM 5 X 150 was inflated to 8 atms for 15 seconds. 16:30:52 HR=76 bpm, VXQS=621/65 mmhg, SpO2=92.0 %, Resp=8 B/min, Pain=0, Justo=10, Schaefer=2 16:32:07 In the SFA (left) a BALLOON, EVERCROSS 5 X 150 135CM 5 X 150 was inflated to 8 atms for 45 seconds. 16:32:53 50 mcg FENTANYL given in lab by Hansa Barajas RN in Right Antecubital via Peripheral IV. 16:35:31 Balloon Removed 16:35:51 An injection in the Fem Art (right) was made through the SHEATH, FR6 PINNACLE DESTINATION 4 5CM FR 6. 16:35:53 HR=73 bpm, ERMP=489/71 mmhg, SpO2=92.0 %, Resp=11 B/min, Pain=0, Justo=10, Schaefer=2 16:38:36 PERCLOSE, PRO GLIDE CLOSER DEVICE FR 6 placement in the Fem Art (right) 16:40:50 HR=81 bpm, WQYR=706/84 mmhg, SpO2=89.0 %, Resp=8 B/min, Pain=0, Justo=10, Schaefer=2 16:41:20 Case End (Physician broke scrub) 16:42:27 Pressure applied to access site. 16:46:06 Vitals capture stopped. 16:46:40 Sterile dressing applied to site 16:47:00 Catheter(s) removed without difficulty 16:47:04 No case complications noted. 16:47:09 Bedside Report will be given. 16:47:10 Implantable Device card placed in patient's chart. 16:51:26 Patient moved to stretcher 17:00:37 Waiting for room to be cleaned 17:59:19 Room is clean and ready. End Study - Contrast Media Used In Study Contrast Total Opened (mL) Total Used (mL) Total Wasted (mL) Omnipaque 300 85 85 0 End Study - Maximum Contrast Load Max Contrast Load (mL) 311.4 End Study - Radiation Exposure Fluoro Time Fluoro Dose (mGy) Cine Dose (uGym2) (minutes) 4.9 28 521 End Study - Patient Disposition Complications Transferred To Interventional Outcome No Telemetry Bed successful
--- NOTE | 2018-03-24 19:04 | MB ---
cc: Isabella Ramirez DPM DATE: 03/24/2018 REASON FOR CONSULTATION: Left leg cellulitis vascular disease and PVD. HISTORY OF PRESENT ILLNESS: The patient is a 72-year-old female who has a wound for about 5 years to the left leg, worsening over the last 3 years, evaluated by Dr. Sierra, sent in for IV antibiotics after oral antibiotics of clindamycin and Cipro failed. PAST MEDICAL HISTORY: Hypertension. PAST SURGICAL HISTORY: Hysterectomy. MEDICATIONS: Per chart. SOCIAL HISTORY: The patient smokes a pack per day. Denies illicit drugs. Alcohol 2-3 times a week. FAMILY HISTORY: Noncontributory. REVIEW OF SYSTEMS: Negative except for left leg pain. PHYSICAL EXAMINATION: EXTREMITIES: Left medial distal tibia ulceration. Positive drainage, fibrotic. DP and PT nonpalpable. LABORATORY DATA: WBC 7.9, platelets 268, hemoglobin 11. IMPRESSION: 1. Left leg wound. 2. Peripheral vascular disease. PLAN: The patient underwent with angio with atherectomy on 03/24/[address] Childress. She will be kept in-house for IV antibiotics and monitor. Likely discharge home with antibiotics per ID. We will continue to follow the patient while in-house. Isabella Ramirez DPM SR/ll , 05:21 PM , 05:28 PM
[2018-03-24] MEDS: Vancomycin Inj 750 MG in Sodium Chlor 0.9% Inj 250 ML IV.SIG SCH (21:34)
[2018-03-24] MEDS: Sod Chloride 0.9% Inj 1,000 ML IV.CONT SCH (22:40)
[2018-03-25] MEDS: Piperacil/Tazo 4.5 GM Premix 4.5 GM/100 ML BAG IV.SIG SCH ×4 (01:36→21:14)
[2018-03-25] MEDS: metroNIDAZOLE 500 MG Tablet PO SCH (06:17)
[2018-03-25] MEDS: Heparin - SQ 10,000 UNITS/ML Vial SQ SCH ×3 (06:17→21:56)
[2018-03-25 08:15] LABS: Hematocrit 28.2 % (35.0-46.0); Hemoglobin 9.7 gm/dL (11.6-15.3); Mean Corpuscular HGB Conc 34.3 % (32.0-36.0); Mean Corpuscular Hemoglobin 30.9 pg (27.0-34.0); Mean Platelet Volume 8.2 fL (7.0-11.0); Platelet Count 230 th/mm3 (150-450); Red Blood Count 3.13 mil/mm3 (4.00-5.30); Red Cell Distribution Width 15.1 % (11.6-17.2); White Blood Count 7.2 th/mm3 (4.0-11.0)
[2018-03-25 08:26] LABS: INR 1.1 Ratio; Prothrombin Time 11.1 sec (9.8-11.6)
[2018-03-25 08:32] LABS: Anion Gap 7 meq/L (5-15); Blood Urea Nitrogen 8 mg/dL (7-18); Calcium 8.1 mg/dL (8.5-10.1); Carbon Dioxide 27.2 meq/L (21.0-32.0); Chloride 109 meq/L (98-107); Glomerular Filtration Rate Greater Than 89 mL/min (>89); Glucose,Random 82 mg/dL (74-106); Potassium 3.3 meq/L (3.5-5.1); Sodium 143 meq/L (136-145)
[2018-03-25 08:37] LABS: Chol/HDL Ratio 3.88 Ratio; HDL Cholesterol 31.4 mg/dL (40.0-60.0)
[2018-03-25] MEDS: Divalproex 500 MG ER Tablet PO SCH ×2 (09:21→21:21)
[2018-03-25] MEDS: Sertraline 50 MG Tablet PO SCH (09:22)
[2018-03-25] MEDS: Lisinopril 20 MG Tablet PO SCH ×2 (09:22→21:19)
[2018-03-25] MEDS: Vitamin B Complex/Vitamin C Tablet PO SCH (09:23)
[2018-03-25] MEDS: Lactobacillus Acidophilus/L. Spores Tablet PO SCH ×2 (09:23→21:18)
[2018-03-25] MEDS: Ascorbic Acid 500 MG Tablet PO SCH (09:23)
[2018-03-25] MEDS: hydroCHLOROthiazide 25 MG Tablet PO SCH ×2 (09:23→21:19)
[2018-03-25] MEDS: Collagenase Oint 30 GM Tube TOPICAL SCH (09:24)
--- NOTE | 2018-03-25 10:54 | P.PNVS ---
Subjective Post Op Day #: 1 Subjective/Hospital Course: Doing well, left lower extremity pain is well controlled Objective Vital Signs / I&O: Vital Signs 03/24/18 11:08 03/24/18 18:36 03/24/18 18:54 Temperature 98 F 99.2 F Pulse Rate 77 76 81 Respiratory Rate 18 20 20 Blood Pressure 176/72 H 173/64 H 155/75 H Pulse Oximetry 95 94 L 95 03/24/18 19:00 03/24/18 20:00 03/24/18 20:45 Temperature Pulse Rate 69 84 77 Respiratory Rate 20 20 Blood Pressure 155/75 H 153/67 H Pulse Oximetry 95 93 L 03/24/18 21:00 03/24/18 22:00 03/24/18 22:45 Temperature Pulse Rate 76 92 H 87 Respiratory Rate 20 Blood Pressure 158/58 H Pulse Oximetry 94 L 03/24/18 22:54 03/24/18 23:00 03/24/18 23:30 Temperature Pulse Rate 75 74 75 Respiratory Rate 20 20 Blood Pressure 135/57 L 130/52 L Pulse Oximetry 92 L 95 03/25/18 00:00 03/25/18 01:00 03/25/18 02:00 Temperature 100.4 F H Pulse Rate 70 80 74 Respiratory Rate 20 Blood Pressure 126/53 L Pulse Oximetry 93 L 03/25/18 03:00 03/25/18 04:00 03/25/18 06:00 Temperature 99.2 F Pulse Rate 72 69 66 Respiratory Rate 20 20 Blood Pressure 136/58 L 118/50 L Pulse Oximetry 94 L 92 L 03/25/18 07:00 03/25/18 08:00 03/25/18 09:00 Temperature 98.4 F Pulse Rate 65 76 72 Respiratory Rate 17 Blood Pressure 131/60 Pulse Oximetry 93 L 03/25/18 10:00 03/25/18 10:26 Temperature Pulse Rate 72 Respiratory Rate 17 Blood Pressure Pulse Oximetry Intake & Output 03/24/18 03/25/18 03/25/18 18:59 06:59 18:59 Intake Total 1600 / 1600 937.5 / 937.5 100 / 100 Output Total 300 / 300 Balance 1600 / 1600 637.5 / 637.5 100 / 100 Intake: IV 1200 / 1200 457.5 / 457.5 100 / 100 NS Inj 1,000 ML @ 50 mls/hr IV. 1000 / 1000 CONT .Q20H [facility] Rx#:[id number] Zosyn 4.5 GM Premix 4.5 gm In 200 / 200 200 / 200 100 / 100 100 ml @ 200 mls/hr IV.SIG Q6H [facility] Rx#:[id number] Vancomycin Inj 750 MG In NS Inj 257.5 / 257.5 250 ML @ 250 mls/hr IV.SIG Q24H [facility] Rx#:[id number] Oral 480 / 480 Anesthesia Amount 400 / 400 Output: Urine 300 / 300 Other: # Voids 3 Date of Last Bowel Movement 03/23/18 03/23/18 # Incontinent Bowel Movements 4 Exam: Right groin clean dry intact +2 palpable left DP pulse Laboratory Results - last 24 hr 03/24/18 03/25/18 03/25/18 14:41 06:26 06:26 WBC 7.2 RBC 3.13 L Hgb 9.7 L Hct 28.2 L MCV 90.0 MCH 30.9 MCHC 34.3 RDW 15.1 Plt Count 230 MPV 8.2 PT INR Sodium Potassium Chloride Carbon Dioxide Anion Gap BUN Creatinine Estimated GFR Random Glucose Calcium Magnesium 2.0 Triglycerides 103 Cholesterol 122 LDL Cholesterol, Calc 70 HDL Cholesterol 31.4 L Cholesterol/HDL Ratio 3.88 Stl C.difficile DNA Amp Negative St C. diff Tox Epid 027 Negative 03/25/18 03/25/18 03/25/18 06:26 06:26 06:26 WBC RBC Hgb Hct MCV MCH MCHC RDW Plt Count MPV PT 11.1 INR 1.1 Sodium 143 Potassium 3.3 L Chloride 109 H Carbon Dioxide 27.2 Anion Gap 7 BUN 8 Creatinine 0.64 Estimated GFR Greater than 89 Random Glucose 82 Calcium 8.1 L Magnesium Cancelled Triglycerides Cholesterol LDL Cholesterol, Calc HDL Cholesterol Cholesterol/HDL Ratio Stl C.difficile DNA Amp St C. diff Tox Epid 027 Microbiology 03/23/18 20:26 Gram Stain - Final Abscess - Leg Wound Culture - Preliminary 03/23/18 20:10 Aerobic Blood Culture - Preliminary Blood - Peripheral No growth in 1 day Anaerobic Blood Culture - Preliminary No growth in 1 day 03/23/18 20:05 Aerobic Blood Culture - Preliminary Blood - Peripheral No growth in 1 day Anaerobic Blood Culture - Preliminary No growth in 1 day Assessment and Plan - Assessment (1) Critical ischemia of lower extremity Code(s): I99.8 - Other disorder of circulatory system Status: Acute - Plan Critical limb ischemia with tissue loss Status post left lower extremity angiogram and balloon angioplasty of the left superficial femoral artery postop day #1 1. PT, OT 2. Local wound care per podiatry team 3. Stable for discharge from vascular surgery standpoint. 4. I will schedule follow-up appointment in 4 weeks with a repeat ABIs. My office will call patient with appointment [facility]der Damico [facility] [place] [phone]
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
[2018-03-25] MEDS ORDERED: Potassium Chlor 20 mEq Premix 20 MEQ/100 ML PIGGYBACK IV.SIG SCH (14:00)
[2018-03-25] MEDS: Vancomycin Inj 750 MG in Sodium Chlor 0.9% Inj 250 ML IV.SIG SCH (21:53)
[2018-03-26] MEDS: Piperacil/Tazo 4.5 GM Premix 4.5 GM/100 ML BAG IV.SIG SCH ×4 (04:10→19:58)
[2018-03-26] MEDS: Heparin - SQ 10,000 UNITS/ML Vial SQ SCH ×3 (05:49→22:57)
[2018-03-26 07:36] LABS: Baso % (Auto) 0.6 % (0.0-2.0); Eos # (Auto) 0.2 th/mm3 (0.0-0.4); Hematocrit 27.1 % (35.0-46.0); Hemoglobin 9.4 gm/dL (11.6-15.3); Lymph # (Auto) 0.8 th/mm3 (1.0-4.8); Lymph % (Auto) 11.2 % (9.0-44.0); Mean Corpuscular HGB Conc 34.8 % (32.0-36.0); Mean Corpuscular Hemoglobin 31.3 pg (27.0-34.0); Mean Platelet Volume 8.2 fL (7.0-11.0); Mono % (Auto) 13.5 % (0.0-8.0); Neut # (Auto) 5.2 th/mm3 (1.8-7.7); Neut % (Auto) 71.7 % (16.0-70.0); Platelet Count 216 th/mm3 (150-450); Red Blood Count 3.01 mil/mm3 (4.00-5.30); Red Cell Distribution Width 14.8 % (11.6-17.2); White Blood Count 7.3 th/mm3 (4.0-11.0)
[2018-03-26 07:59] LABS: Anion Gap 8 meq/L (5-15); Blood Urea Nitrogen 4 mg/dL (7-18); Calcium 7.7 mg/dL (8.5-10.1); Carbon Dioxide 25.8 meq/L (21.0-32.0); Chloride 107 meq/L (98-107); Glomerular Filtration Rate Greater Than 89 mL/min (>89); Glucose,Random 74 mg/dL (74-106); Magnesium 1.9 mg/dL (1.5-2.5); Potassium 3.6 meq/L (3.5-5.1); Sodium 141 meq/L (136-145)
[2018-03-26] MEDS: Lactobacillus Acidophilus/L. Spores Tablet PO SCH ×2 (10:29→20:05)
[2018-03-26] MEDS: Vitamin B Complex/Vitamin C Tablet PO SCH (10:29)
[2018-03-26] MEDS: Sertraline 50 MG Tablet PO SCH (10:29)
[2018-03-26] MEDS: Lisinopril 20 MG Tablet PO SCH ×2 (10:29→20:07)
[2018-03-26] MEDS: Divalproex 500 MG ER Tablet PO SCH ×2 (10:29→20:05)
[2018-03-26] MEDS: Collagenase Oint 30 GM Tube TOPICAL SCH (10:30)
[2018-03-26] MEDS: Ascorbic Acid 500 MG Tablet PO SCH (10:30)
[2018-03-26] MEDS: hydroCHLOROthiazide 25 MG Tablet PO SCH ×2 (10:30→20:06)
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
--- NOTE | 2018-03-26 15:51 | P.DCO ---
Diagnosis (1) Critical ischemia of lower extremity: Status: Acute Physical Therapy Order: Evaluate and treat Home Health Nursing Order: Medical education, Wound care and dressing changes and Nursing assessment with vital signs Case Management Consult Case Management Consult-Home Health: Yes I have seen patient Monika Cano on 03/26/18. My clinical findings support the need for the requested home health care services because: Limited mobility due to disease progression, Medication compliance is questionable and Limited ability to care for self I certify that my clinical findings support that this patient is homebound because: Unsteady gait/balance
[2018-03-26] MEDS: Vancomycin Inj 750 MG in Sodium Chlor 0.9% Inj 250 ML IV.SIG SCH (20:47)
--- NOTE | 2018-03-26 21:45 | P.PNPOD ---
Subjective Interval history: Left PVD Left leg wound Seen at bedside this am with ID and nursing staff Physical Exam Vital signs: Vital Signs 03/25/18 22:00 03/25/18 23:00 03/26/18 00:00 Temperature 98.3 F Pulse Rate 82 73 80 Respiratory Rate 16 Blood Pressure 138/63 Pulse Oximetry 94 L 03/26/18 01:00 03/26/18 02:00 03/26/18 03:00 Temperature Pulse Rate 72 72 88 Respiratory Rate Blood Pressure Pulse Oximetry 03/26/18 04:00 03/26/18 05:00 03/26/18 06:00 Temperature 99.6 F Pulse Rate 120 H 78 90 Respiratory Rate 16 Blood Pressure 148/63 H Pulse Oximetry 95 03/26/18 07:00 03/26/18 08:00 03/26/18 09:00 Temperature 99.3 F Pulse Rate 75 86 82 Respiratory Rate 18 Blood Pressure 115/56 L Pulse Oximetry 96 03/26/18 10:00 03/26/18 11:00 03/26/18 12:00 Temperature 98.6 F Pulse Rate 74 82 88 Respiratory Rate 18 Blood Pressure 144/60 H Pulse Oximetry 96 03/26/18 15:00 03/26/18 16:00 03/26/18 17:00 Temperature 98.2 F Pulse Rate 77 79 70 Respiratory Rate 18 Blood Pressure 163/69 H Pulse Oximetry 97 03/26/18 18:00 Temperature Pulse Rate 70 Respiratory Rate Blood Pressure Pulse Oximetry Intake & Output 03/26/18 03/26/18 03/27/18 06:59 18:59 06:59 Intake Total 697.5 / 697.5 940 / 940 Output Total 4 / 4 Balance 693.5 / 693.5 940 / 940 Intake: IV 457.5 / 457.5 200 / 200 Zosyn 4.5 GM Premix 4.5 gm In 200 / 200 200 / 200 100 ml @ 200 mls/hr IV.SIG Q6H KATHARINE Rx#:[id number] Vancomycin Inj 750 MG In NS Inj 257.5 / 257.5 250 ML @ 250 mls/hr IV.SIG Q24H KATHARINE Rx#:[id number] Oral 240 / 240 740 / 740 Output: Urine 4 / 4 Other: # Voids 12 Date of Last Bowel Movement 03/26/18 03/26/18 # Bowel Movements 1 # Incontinent Bowel Movements 4 10 Narrative: LLE warm to warm Left medial leg with 4x7 ulcer, 90% fibrotic. No erythema or drainage or purulence. Medications and Allergies Active Medications: Active Medications Acetaminophen (Tylenol) 650 mg PO Q4H PRN PRN Reason: Temp > 100.4 Al Hydroxide/Mg Hydroxide (Milk Of Magnesia Liq) 30 ml PO Q12H PRN PRN Reason: Mild Constipation Ascorbic Acid (Vitamin C) 500 mg PO DAILY [facility] Last Admin: 03/26/18 10:30 Dose: 500 mg Aspirin (Ecotrin) 81 mg PO DAILY [facility] Last Admin: 03/26/18 10:29 Dose: 81 mg Bisacodyl (Dulcolax Supp) 10 mg RECTAL DAILY PRN PRN Reason: SEVERE CONSITIPATION Collagenase (Santyl Oint) 1 applicatio TOPICAL DAILY [facility] Last Admin: 03/26/18 10:30 Dose: Not Given Divalproex Sodium (Depakote Er) 500 mg PO BID [facility] Last Admin: 03/26/18 20:05 Dose: 500 mg Enalaprilat (Vasotec Inj) 2.5 mg IV.PUSH Q6H PRN PRN Reason: SYS BP GREATER THAN 160 MMHG Heparin Sodium (Porcine) (Heparin Inj) 5,000 units SQ Q8HR [facility] Last Admin: 03/26/18 16:04 Dose: 5,000 units Hydrochlorothiazide (Hydrodiuril) 12.5 mg PO BID [facility] Last Admin: 03/26/18 20:06 Dose: 12.5 mg Piperacillin/Tazobactam/Dextrose (Zosyn 4.5 Gm Premix) 4.5 gm in 100 mls @ 200 mls/hr IV.SIG Q6H [facility] Last Admin: 03/26/18 19:58 Dose: 200 mls/hr Vancomycin HCl 750 mg/ Sodium (Chloride) 257.5 mls @ 250 mls/hr IV.SIG Q24H [facility] Last Admin: 03/26/18 20:47 Dose: 250 mls/hr Lactobacillus Acidophilus (Lactinex) 1 tab PO BID [facility] Last Admin: 03/26/18 20:05 Dose: 1 tab Lactulose (Lactulose Liq) 30 ml PO DAILY PRN PRN Reason: SEVERE CONSITIPATION Lisinopril (Prinivil) 20 mg PO BID [facility] Last Admin: 03/26/18 20:07 Dose: 20 mg Loperamide HCl (Imodium) 2 mg PO Q6H PRN PRN Reason: DIARRHEA Miscellaneous Information ([facility] Ordered Lab Info) 0 each OTHER ONCE ONE Stop: 03/27/18 20:46 Ondansetron HCl (Zofran Inj) 4 mg IV.PUSH Q6H PRN PRN Reason: NAUSEA OR VOMITING Oxycodone/Acetaminophen (Percocet 5/325 Mg) 1 tab PO Q6H PRN PRN Reason: BREAKTHROUGH PAIN Last Admin: 03/26/18 20:16 Dose: 1 tab Pharmacy Profile Note (Vancomycin Consult Pharmacy) 1 each OTHER UNSCH PRN PRN Reason: Pharmacy to dose Sennosides (Senokot) 17.2 mg PO Q12H PRN PRN Reason: Moderate Constipation Sertraline HCl (Zoloft) 50 mg PO DAILY [facility] Last Admin: 03/26/18 10:29 Dose: 50 mg Sodium Chloride (Ns Flush) 2 ml IV.FLUSH BID [facility] Last Admin: 03/26/18 20:08 Dose: 2 ml Sodium Chloride (Ns Flush) 2 ml IV.FLUSH PRN PRN PRN Reason: FLUSH AFTER USING IV ACCESS Terazosin HCl (Hytrin) 1 mg PO [facility] Last Admin: 03/26/18 20:07 Dose: 1 mg Vitamin B Complex/Vitamin C (Allbee C) 1 tab PO DAILY [facility] Last Admin: 03/26/18 10:29 Dose: 1 tab Allergies Allergy/AdvReac Type Severity Reaction Status Date / Time No Known Allergies Allergy Verified 03/23/18 19:39 Home Medications Medication Instructions Recorded Confirmed Type ascorbic acid (vitamin C) [Vitamin 500 mg PO DAILY 03/23/18 03/24/18 History C] [id number] 1 tab PO DAILY 03/23/18 03/24/18 History divalproex 500 mg PO BID 03/23/18 03/24/18 History lisinopril-hydrochlorothiazide 1 tab PO BID 03/23/18 03/24/18 History sertraline 50 mg PO DAILY 03/23/18 03/24/18 History terazosin 1 mg PO HS 03/23/18 03/24/18 History vitamin B complex [B Complex 1] 1 tab PO DAILY 03/23/18 03/24/18 History Results - Labs CBC & Chem 7: 03/26/18 05:18 03/26/18 05:18 Laboratory Results - last 24 hr 03/26/18 03/26/18 05:18 05:18 WBC 7.3 RBC 3.01 L Hgb 9.4 L Hct 27.1 L MCV 90.0 MCH 31.3 MCHC 34.8 RDW 14.8 Plt Count 216 MPV 8.2 Neut % (Auto) 71.7 H Lymph % (Auto) 11.2 [place] % (Auto) 13.5 H Eos % (Auto) 3.0 Baso % (Auto) 0.6 Neut # (Auto) 5.2 Lymph # (Auto) 0.8 L Jerome # (Auto) 1.0 H Eos # (Auto) 0.2 Baso # (Auto) 0.0 WBC Differential . Differential Comment Auto diff final Sodium 141 Potassium 3.6 Chloride 107 Carbon Dioxide 25.8 Anion Gap 8 BUN 4 L Creatinine 0.55 Estimated GFR Greater than 89 Random Glucose 74 Calcium 7.7 L Magnesium 1.9 Microbiology 03/23/18 20:10 Blood - Peripheral Aerobic Blood Culture - Preliminary No growth in 3 days 03/23/18 20:10 Blood - Peripheral Anaerobic Blood Culture - Preliminary No growth in 3 days 03/23/18 20:05 Blood - Peripheral Aerobic Blood Culture - Preliminary No growth in 3 days 03/23/18 20:05 Blood - Peripheral Anaerobic Blood Culture - Preliminary No growth in 3 days Assessment and Plan - Assessment (1) Critical ischemia of lower extremity Code(s): I99.8 - Other disorder of circulatory system Status: Acute (2) Infected wound Code(s): T14.8XXA - Other injury of unspecified body region, initial encounter; L08.9 - Local infection of the skin and subcutaneous tissue, unspecified Status: Acute (3) PAD (peripheral artery disease) Code(s): I73.9 - Peripheral vascular disease, unspecified Status: Acute - Plan OK to d/c per Podiatry f/u with Dr Chen within 1 week of d/c Continue with daily dressing changes with santyl and DSD, left leg OK to WB
[2018-03-27] MEDS: Piperacil/Tazo 4.5 GM Premix 4.5 GM/100 ML BAG IV.SIG SCH ×3 (02:35→13:56)
[2018-03-27] MEDS: Heparin - SQ 10,000 UNITS/ML Vial SQ SCH ×3 (05:15→22:17)
[2018-03-27 07:35] LABS: Baso % (Auto) 0.5 % (0.0-2.0); Eos # (Auto) 0.4 th/mm3 (0.0-0.4); Eos % (Auto) 4.9 % (0.0-4.0); Hemoglobin 9.5 gm/dL (11.6-15.3); Lymph # (Auto) 1.5 th/mm3 (1.0-4.8); Lymph % (Auto) 19.3 % (9.0-44.0); Mean Corpuscular HGB Conc 33.8 % (32.0-36.0); Mean Corpuscular Hemoglobin 30.7 pg (27.0-34.0); Mean Corpuscular Volume 90.7 fL (80.0-100.0); Mean Platelet Volume 7.5 fL (7.0-11.0); Mono # (Auto) 1.4 th/mm3 (0.0-0.9); Mono % (Auto) 18.1 % (0.0-8.0); Neut # (Auto) 4.3 th/mm3 (1.8-7.7); Neut % (Auto) 57.2 % (16.0-70.0); Platelet Count 221 th/mm3 (150-450); Red Blood Count 3.09 mil/mm3 (4.00-5.30); Red Cell Distribution Width 15.1 % (11.6-17.2); White Blood Count 7.6 th/mm3 (4.0-11.0)
[2018-03-27 08:01] LABS: Anion Gap 6 meq/L (5-15); Blood Urea Nitrogen 5 mg/dL (7-18); Calcium 8.2 mg/dL (8.5-10.1); Carbon Dioxide 28.6 meq/L (21.0-32.0); Chloride 106 meq/L (98-107); Glomerular Filtration Rate Greater Than 89 mL/min (>89); Glucose,Random 84 mg/dL (74-106); Potassium 3.5 meq/L (3.5-5.1); Sodium 141 meq/L (136-145)
[2018-03-27] MEDS: Divalproex 500 MG ER Tablet PO SCH ×2 (09:00→22:16)
[2018-03-27] MEDS: Sertraline 50 MG Tablet PO SCH (09:00)
[2018-03-27] MEDS: Ascorbic Acid 500 MG Tablet PO SCH (09:00)
[2018-03-27] MEDS: Vitamin B Complex/Vitamin C Tablet PO SCH (09:01)
[2018-03-27] MEDS: hydroCHLOROthiazide 25 MG Tablet PO SCH ×2 (09:01→22:15)
[2018-03-27] MEDS: Lisinopril 20 MG Tablet PO SCH ×2 (09:01→22:16)
[2018-03-27] MEDS: Lactobacillus Acidophilus/L. Spores Tablet PO SCH ×2 (09:01→22:16)
[2018-03-27] MEDS: Collagenase Oint 30 GM Tube TOPICAL SCH (09:03)
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
--- NOTE | 2018-03-27 12:28 | P.PNID ---
Subjective Remarks: Notes reviewed. Patient states that she feels okay. No fever. Status post revascularization procedure. Angiogram and balloon angioplasty. Did exercises with physical therapy this morning. Noted to be weak. Wound culture has normal sia. 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 She had an injury to the leg 5 years ago. She noticed that 3 weeks ago the area became more reddened and has been looking progressively worse since that time. She was evaluated by Podiatry outpatient. She was put on antibiotic in the form of clindamycin and ciprofloxacin on 03/16/2018. She tells me that she began to have diarrhea the day after she started taking the antibiotics. She was reported to have peripheral vascular disease noted with ultrasound and MRI showed no evidence of osteomyelitis or abscess. She was sent to the emergency department for evaluation and a culture of the wound was taken and blood culture was also taken. She continues to have bouts of diarrhea. The wound culture is pending. The patient is afebrile and white blood cell count is normal. This consultation is requested for infection evaluation and management. Antibiotics: vancomycin Zosyn Past Medical History: HTN PVD Hysterectomy Allergies/Adverse Reactions: Allergies No Known Allergies Allergy (Verified 03/23/18 19:39) Objective Vital Signs 03/26/18 15:00 03/26/18 16:00 03/26/18 17:00 Temperature 98.2 F Pulse Rate 77 79 70 Respiratory Rate 18 Blood Pressure 163/69 H Pulse Oximetry 97 03/26/18 18:00 03/26/18 19:00 03/26/18 20:00 Temperature 98.6 F Pulse Rate 70 73 82 Respiratory Rate 14 Blood Pressure 160/73 H Pulse Oximetry 95 03/26/18 21:00 03/26/18 22:00 03/26/18 23:00 Temperature Pulse Rate 78 74 82 Respiratory Rate Blood Pressure Pulse Oximetry 03/27/18 00:00 03/27/18 01:00 03/27/18 02:00 Temperature 99.2 F Pulse Rate 74 72 79 Respiratory Rate 16 Blood Pressure 142/60 H Pulse Oximetry 96 03/27/18 03:00 03/27/18 04:00 03/27/18 05:00 Temperature 98.7 F Pulse Rate 78 69 60 Respiratory Rate 14 Blood Pressure 129/56 L Pulse Oximetry 97 03/27/18 06:00 03/27/18 08:49 03/27/18 09:00 Temperature 98.0 F Pulse Rate 76 72 72 Respiratory Rate 16 Blood Pressure 146/68 H Pulse Oximetry 97 03/27/18 10:00 03/27/18 11:00 Temperature Pulse Rate 72 62 Respiratory Rate Blood Pressure Pulse Oximetry Intake & Output 03/26/18 03/27/18 03/27/18 18:59 06:59 18:59 Intake Total 940 / 940 680 / 680 Balance 940 / 940 680 / 680 Weight 49 kg Intake: IV 200 / 200 200 / 200 Zosyn 4.5 GM Premix 4.5 gm In 200 / 200 200 / 200 100 ml @ 200 mls/hr IV.SIG Q6H KATHARINE Rx#:[id number] Oral 740 / 740 480 / 480 Other: # Voids 12 3 Date of Last Bowel Movement 03/26/18 03/26/18 03/27/18 # Incontinent Bowel Movements 10 03/23/18 20:10 Blood - Peripheral Aerobic Blood Culture - Preliminary No growth in 4 days 03/23/18 20:10 Blood - Peripheral Anaerobic Blood Culture - Preliminary No growth in 4 days 03/23/18 20:05 Blood - Peripheral Aerobic Blood Culture - Preliminary No growth in 4 days 03/23/18 20:05 Blood - Peripheral Anaerobic Blood Culture - Preliminary No growth in 4 days 03/23/18 20:26 Abscess - Leg Gram Stain - Final 03/23/18 20:26 Abscess - Leg Wound Culture - Final Heavy growth normal skin sia No anaerobes isolated Lab - Hematology Results 03/26/18 03/27/18 05:18 07:09 WBC 7.3 7.6 RBC 3.01 L 3.09 L Hgb 9.4 L 9.5 L Hct 27.1 L 28.0 L MCV 90.0 90.7 MCH 31.3 30.7 MCHC 34.8 33.8 RDW 14.8 15.1 Plt Count 216 221 MPV 8.2 7.5 Neut % (Auto) 71.7 H 57.2 Lymph % (Auto) 11.2 19.3 [place] % (Auto) 13.5 H 18.1 H Eos % (Auto) 3.0 4.9 H Baso % (Auto) 0.6 0.5 Neut # (Auto) 5.2 4.3 Lymph # (Auto) 0.8 L 1.5 [place] # (Auto) 1.0 H 1.4 H Eos # (Auto) 0.2 0.4 Baso # (Auto) 0.0 0.0 WBC Differential . . Differential Comment Auto diff final Auto diff final Lab - Chemistry Results 03/26/18 03/27/18 05:18 07:09 Sodium 141 141 Potassium 3.6 3.5 Chloride 107 106 Carbon Dioxide 25.8 28.6 Anion Gap 8 6 BUN 4 L 5 L Creatinine 0.55 0.62 Estimated GFR Greater than 89 Greater than 89 Random Glucose 74 84 Calcium 7.7 L 8.2 L Magnesium 1.9 Imaging: ITS Impressions Tibia/Fibula X-Ray 03/23/18 20:00 CONCLUSION: 1. Soft tissue swelling overlying the distal anterior tibia without underlying bony abnormality or opaque foreign bodies. Aorta w/Runoff CTA 03/23/18 20:04 CONCLUSION: 1. Plaque throughout the arterial system. 2. Moderate plaque at the proximal right internal and external iliac arteries. 3. Plaque narrowing the lumen by 50% at the right common femoral artery. 4. 2 focal areas of narrowing at the mid and distal left superficial femoral artery narrowing the lumen by 50%. Physical Exam: GENERAL: She is a frail, thin female, who is awake and alert and in no acute distress. Skin; no rash HEENT: Head atraumatic. Extraocular movements grossly intact. Pupils reactive to light. No icterus. No conjunctival erythema. Oropharynx, no thrush. No visible lesions. NECK: Supple without adenopathy. LUNGS: Decreased breath sounds throughout. HEART: Distant S1 and S2, without audible murmur. ABDOMEN: Bowel sounds present. Soft, no tenderness. EXTREMITIES: LLE -ulceration with slough at the tibia. NEUROLOGIC: Grossly non-focal PSYCHIATRIC: Calm and cooperative. Assessment and Plan - Plan IMPRESSION: Left leg nonhealing infected wound. with some local infection and mild cellulitis - may not have responded to Abx due to PVD PVD, S/P revascularization Diarrhea, C diff negative RECOMMENDATIONS: Stop Zosyn Stop Vanco Give Keflex p.o. 500 mg 4 times daily times 10 days. Patient can be discharged from my standpoint. I will sign off now.
[2018-03-27] MEDS ORDERED: Pharmacy Ordered Lab Info OTHER ONE (20:45)
[2018-03-28] MEDS: Heparin - SQ 10,000 UNITS/ML Vial SQ SCH ×3 (06:23→21:37)
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
[2018-03-28] MEDS: hydroCHLOROthiazide 25 MG Tablet PO SCH ×2 (09:28→21:38)
[2018-03-28] MEDS: Vitamin B Complex/Vitamin C Tablet PO SCH (09:28)
[2018-03-28] MEDS: Sertraline 50 MG Tablet PO SCH (09:28)
[2018-03-28] MEDS: Divalproex 500 MG ER Tablet PO SCH ×2 (09:29→21:40)
[2018-03-28] MEDS: Ascorbic Acid 500 MG Tablet PO SCH (09:29)
[2018-03-28] MEDS: Lisinopril 20 MG Tablet PO SCH ×2 (09:29→21:40)
[2018-03-28] MEDS: Loperamide 2 MG Capsule PO PRN ×3 (09:29→21:40)
[2018-03-28] MEDS: Lactobacillus Acidophilus/L. Spores Tablet PO SCH ×2 (09:29→21:40)
[2018-03-28] MEDS: Piperacil/Tazo 4.5 GM Premix 4.5 GM/100 ML BAG IV.SIG SCH ×5 (10:03→21:43)
[2018-03-28] MEDS: Collagenase Oint 30 GM Tube TOPICAL SCH (10:09)
[2018-03-28] MEDS ORDERED: Pharmacy Ordered Lab Info OTHER ONE (20:45)
[2018-03-29] MEDS: Vancomycin Inj 750 MG in Sodium Chlor 0.9% Inj 250 ML IV.SIG SCH ×3 (01:32→21:27)
[2018-03-29] MEDS: Piperacil/Tazo 4.5 GM Premix 4.5 GM/100 ML BAG IV.SIG SCH ×4 (03:34→20:21)
[2018-03-29] MEDS: Heparin - SQ 10,000 UNITS/ML Vial SQ SCH ×3 (06:30→21:30)
[2018-03-29] MEDS: Lisinopril 20 MG Tablet PO SCH ×2 (09:01→21:29)
[2018-03-29] MEDS: Vitamin B Complex/Vitamin C Tablet PO SCH (09:01)
[2018-03-29] MEDS: Divalproex 500 MG ER Tablet PO SCH ×2 (09:02→21:29)
[2018-03-29] MEDS: Lactobacillus Acidophilus/L. Spores Tablet PO SCH ×2 (09:02→21:28)
[2018-03-29] MEDS: Sertraline 50 MG Tablet PO SCH (09:02)
[2018-03-29] MEDS: hydroCHLOROthiazide 25 MG Tablet PO SCH ×2 (09:02→21:29)
[2018-03-29] MEDS: Ascorbic Acid 500 MG Tablet PO SCH (09:02)
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
[2018-03-29] MEDS: Collagenase Oint 30 GM Tube TOPICAL SCH (12:45)
[2018-03-29] MEDS ORDERED: Pharmacy Ordered Lab Info OTHER ONE (20:45)
[2018-03-30] MEDS: Piperacil/Tazo 4.5 GM Premix 4.5 GM/100 ML BAG IV.SIG SCH ×2 (03:16→08:46)
[2018-03-30] MEDS: Heparin - SQ 10,000 UNITS/ML Vial SQ SCH (06:09)
[2018-03-30] MEDS: Lisinopril 20 MG Tablet PO SCH (08:46)
[2018-03-30] MEDS: Vitamin B Complex/Vitamin C Tablet PO SCH (08:46)
[2018-03-30] MEDS: Lactobacillus Acidophilus/L. Spores Tablet PO SCH (08:46)
[2018-03-30] MEDS: Divalproex 500 MG ER Tablet PO SCH (08:46)
[2018-03-30] MEDS: Sertraline 50 MG Tablet PO SCH (08:47)
[2018-03-30] MEDS: Ascorbic Acid 500 MG Tablet PO SCH (08:47)
[2018-03-30] MEDS: hydroCHLOROthiazide 25 MG Tablet PO SCH (08:48)
[2018-03-30] MEDS ORDERED: Vancomycin Inj 750 MG in Sodium Chlor 0.9% Inj 250 ML IV.SIG SCH (09:00)
[2018-03-30 09:53] VITALS: RESP 18
[2018-03-30] MEDS: Collagenase Oint 30 GM Tube TOPICAL SCH (11:00)
[2018-03-30 12:12] VITALS: BP 119/54; TEMP 98.2; O2SAT 99
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
[2018-03-30 13:55] VITALS: PULSE 62
[2018-03-31] MEDS ORDERED: Pharmacy Ordered Lab Info OTHER ONE (08:45)
== END 2018-03-30 14:15 ==
LOC: NEPE 19:31 → NEDA 23:12 → NEPFCDU 03-24 01:01 → N05 03-24 16:28 → HCIN 03-24 18:07
PROVIDERS: ADMIT Internal Medicine; ATTEND Internal Medicine
PROC: ANGIOLE (2018-03-24 15:00)
DX: I70.292 Other atherosclerosis of native arteries of extremities, left leg; I10 Essential (primary) hypertension; I70.0 Atherosclerosis of aorta; E87.6 Hypokalemia; D64.9 Anemia, unspecified; K52.9 Noninfective gastroenteritis and colitis, unspecified; I70.201 Unspecified atherosclerosis of native arteries of extremities, right leg; Z90.710 Acquired absence of both cervix and uterus; I99.8 Other disorder of circulatory system; L03.116 Cellulitis of left lower limb; F17.210 Nicotine dependence, cigarettes, uncomplicated